=== PATIENT | male | born 1975 | race African-American/Black ===

== ENCOUNTER 2022-06-23 23:27 | Emergency (ER) | payer OTHER ==
[~2022-06-23] VITALS: Ht 177.8 cm; Wt 91.0 kg
[2022-06-24] MEDS ORDERED: KETOROLAC 30MG/ML VIAL IM ONE (01:45)
[2022-06-24 02:52] LABS: BASOPHILS % 0.6 % (0.0-2.0); EOSINOPHILS % 1.3 % (0.0-5.0); HEMATOCRIT. 45.8 % (42.0-52.0); HEMOGLOBIN. 14.7 g/dL (14.0-18.0); LYMPHOCYTES % 25.3 % (20.0-50.0); MEAN CORPUSCULAR HEMOGLOBIN 29.7 pg (28.0-32.0); MEAN CORPUSCULAR VOLUME 92.4 fL (80.0-94.0); MONOCYTES % 9.5 % (2.0-8.0); NEUTROPHILS % 63.3 % (40.0-76.0); PLATELET 133 x1000/uL (130-400); RED BLOOD CELL COUNT 4.96 mill/uL (4.7-6.1); RED CELL DISTRIBUTION WIDTH 16.4 % (11.6-14.6)
[2022-06-24 02:57] LABS: CHLORIDE 112 mEq/L (98-107)
[2022-06-24 03:59] LABS: CLARITY URINE TURBID (CLEAR); COLOR URINE DARK YELLOW (YELLOW); KETONES URINE NEGATIVE (NEGATIVE); LEUKOCYTE ESTERASE URINE 3+ (NEGATIVE); NITRITE URINE NEGATIVE (NEGATIVE); OCCULT BLOOD URINE 3+ (NEGATIVE); PH URINE 5.5 (4.5-8.0); PROTEIN URINE 3+ (NEGATIVE); SPECIFIC GRAVITY URINE 1.024 (1.005-1.030)
[2022-06-24] MEDS ORDERED: CEFTRIAXONE SODIUM 1 G/VIAL IM ONE (04:45)
[2022-06-24] MEDS ORDERED: CEPH500C2 MT (05:16)
[2022-06-24] MEDS ORDERED: IBUP-2029 MT (05:16)
[2022-06-24 05:43] VITALS: BP 138/79
== END 2022-06-24 05:45 | disposition home or self-care (01) ==
LOC: ER 23:44
DX: N39.0 Urinary tract infection, site not specified (principal); Z98.890 Other specified postprocedural states
CPT/HCPCS: 36415; 74176; 80053; 81003; 85025; 87086; 96372; 99284; J1885